=== PATIENT | male | born 1965 | race Caucasian/White ===

== ENCOUNTER 2023-12-06 09:30 | Emergency (ER) | payer OTHER, SELFPAY ==
[2023-12-06 09:31] VITALS: BP 140/65
[2023-12-06 09:40] VITALS: BMI 25.1
--- NOTE | 2023-12-06 09:45 | ED.GENMED ---
History of Present Illness
General
Chief Complaint: Abdominal Symptoms
Source: patient and spouse
Exam Limitations: none
Time Seen by Provider: 12/06/23 09:34
Nursing documentation reviewed up to this point in time: agreed with
Travel History
Have you had any contact with someone who has COVID-19?: No
Do you have any symptoms of coronavirus? Fever > 100 degrees, chills, cough, shortness of breath, sore throat, loss of taste or smell, muscle aches, or headache?: No
History of Present Illness
History of Present Illness:
58-year-old male with a past medical history of hypertension, GERD who presents to the emergency room with his for evaluation of flulike syndrome. Patient reports that 4 days ago he began feeling sick with what he describes as 'a cold.' He
says he has been having some coughing, congestion, sore throat, fever/chills throughout the weekend. He says that this morning he started to have some abdominal discomfort�he reports some aching abdominal pain associate with nausea and dry heaves.
He says that these GI symptoms started shortly after eating 2 eggs for breakfast. He says he decided to come to the emergency room to be evaluated. He has not had any chest pain or shortness of breath. He has not had any diarrhea in fact has been
slightly constipated. He denies any other complaints. He does report that he recently attended an international conference with a large group of people who could potentially be sick contacts. He has prior surgical history of cholecystectomy.
Past History
Past History
ED Past Medical History: HTN
ED Past Surgical History: Cholecystectomy
Social History
Tobacco: Non-smoker
Alcohol: Occasional
Drug: None
Personal:
Living: with family
Review of Systems
Review of Systems
All Other Systems: ROS reviewed and negative except as documented in HPI and ROS
Constitutional: Reports fever, fatigue and chills
EENT: Reports sore throat and runny nose
Respiratory: Reports cough; Denies trouble breathing
Cardiac: Denies chest pain or palpitations
ABD/GI: Reports abdominal pain, nausea and constipated; Denies vomiting or diarrhea
: Denies flank pain
Musculoskeletal: Denies neck pain or back pain
Neurological: Denies dizzy, headache, weakness or numbness
Phy Exam
Physical Exam
Physical Exam:
General: Awake, alert, oriented x3; no acute distress
Head: Normocephalic, atraumatic
Eyes: Conjunctiva normal, EOMI, sclera anicteric
Ears: TMs clear bilaterally
Throat: Airway intact, handling secretions; erythema of the soft palate and tonsils, uvula but no swelling or exudate; uvula is midline
Neck: Trachea midline, supple without meningismus
Lungs: Clear to auscultation bilaterally, no wheezing, rales, rhonchi
Heart: Regular rate and rhythm, no murmurs, gallops, or rubs
Abd: Soft, non distended, minimally tender in the left lower quadrant with no masses, no rebound, no guarding
Neuro: Cranial nerves grossly intact, speech fluid
Skin: no rash
Extremities: No edema in extremities, equal pulses in all extremities
Scores
Heart Failure Risk
Heart Failure Risk Score: Not Applicable
Heart Score for Chest Pain Patients
STEMI patient?: Not applicable
Withdrawal Assessment of Alcohol
Withdrawal Assessment Completed?: Not applicable
Course
Orders/Labs/Results
Orders:
Orders
12/06/23 09:47
Comprehensive Metabolic Panel Urgent
Lipase Urgent
12/06/23 09:48
COVID-19 Antigen Urgent
Source: Nasal Swab
Complete Blood Count/With Diff Urgent
Influenza A+B Rapid Molecular Urgent
RAH Source: Nasal Swab
Specimen Description:
12/06/23 09:51
0.9% Sodium Chloride 500 ml [Nss] 500 ml IV BOLUS
Mag Hydrox/Al Hydrox/Simeth [Maalox] 30 ml Phenobarb/Hyoscy/Atropine/Scop [] 10 ml PO NOW
Ondansetron Injectable [Zofran] 4 mg IV NOW STA
12/06/23 09:53
Mag Hydrox/Al Hydrox/Simeth [Maalox] 30 ml .ROUTE .STK-MED ONE
Phenobarb/Hyoscy/Atropine/Scop [] 10 ml .ROUTE .STK-MED ONE
Abnormal Lab Results
12/06/23
09:48
SARS-CoV-2 Antigen Positive A
(Negative)
Vital Signs
Initial and Last Documented VS:
Initial Vital Signs
Temp Pulse Resp BP Pulse Ox
37.0 C 51 15 140/65 100
12/06/23 09:31 12/06/23 09:31 12/06/23 09:31 12/06/23 09:31 12/06/23 09:31
Last Documented Vital Signs
Temp Pulse Resp BP Pulse Ox
37.0 C 51 15 140/65 100
12/06/23 09:31 12/06/23 09:31 12/06/23 09:31 12/06/23 09:31 12/06/23 09:31
MDM/Problems Addressed
Differential Diagnosis Includes:
Influenza, COVID, other viral syndrome; diverticulitis a consideration although somewhat less likely based on clinical picture; UTI, kidney stone considered much less likely; pancreatitis less likely
MDM/Problems Addressed:
58-year-old male presents for evaluation of flulike illness over the past few days today having some GI symptoms. Vital signs are normal. Exam as above. Plan to place an IV check labs including CBC and CMP, lipase. Send viral swabs. He is
minimally tender on exam and by history symptoms sound likely viral�low suspicion for intra-abdominal emergency or surgical pathology based on full clinical picture and exam and at this point we will hold on abdominal imaging. Monitor closely
reassess after the above.
Patient's COVID swab came back positive�I suspect this is the likely etiology of his symptoms. He also has been taking Mucinex recently for his cold symptoms which could have contributed to his GI issues today. Awaiting results of his lab work but
likely stable for discharge�he is feeling a bit better after ED treatment. We did speak about potentially prescription for Paxlovid but patient 4 to 5 days into his illness and with relatively mild symptoms with no significant comorbidities; we
will hold on this prescription for now.
*Pulse Oximetry
Patient hypoxic: no
*Critical Care Note
Total Time (30-74mins, 75-104mins- exclusive of procedures): Not Applicable
Data Reviewed
Source: patient and spouse
Prescriptions/Medications Considered But Not Given:
Considered Paxlovid as above
Further Testing Considered But Not Given:
Considered CT of the abdomen and pelvis as above
ED Attending Note
-
Portions of this chart may have been created with voice recognition software.� Occasional wrong word or��sound alike� substitutions may have occurred due to the inherent limitations of voice recognition software.
Discharge Plan
Departure
Patient with high blood pressure during this ER visit?: No
Discharge Problem:
COVID-19
Instructions: COVID-19 ED
Prescriptions:
No Action
ibuprofen [Advil] 200 MG tablet
400 mg PO PRN PRN (Reason: pain)
omeprazole 20 MG capsule,delayed release(DR/EC)
20 mg PO DAILY
lisinopril 5 MG tablet
5 mg PO DAILY
Referrals:
Keshav Reece I., DO [Family Provider] - Follow up in 5-7 days
Activity Restrictions/Additional Instructions:
Thank you for visiting the Emergency Department at [facility].
1. Please schedule a follow up appointment as directed. Call first thing tomorrow morning to make an appointment.
2. If indicated, please take your medications as instructed and indicated on discharge paperwork.
3. If any of your symptoms do not improve, or persist, or become more severe within 6-12 hours, please return to the emergency department for further care.
4. Please return to the emergency department if you develop a headache, neck pain/stiffness, fever greater than 100.4F, chest pain, shortness of breath, persistent nausea, vomiting, slurred speech, difficulty walking, numbness/tingling, weakness,
signs of infection or any other symptoms that are worrisome to you.
Please call [phone] if you have any questions.
Interventions
Interventions:
*Risk Screen - Suicide Last Done: 12/06/23 09:40
*General Assessment Last Done: 12/06/23 09:40
*Neglect/Abuse Screening Last Done: 12/06/23 09:40
*ED COVID-19 Vaccine History Last Done: 12/06/23 09:40
EU-Uepzfy-Eepbqzlqib Assessment Last Done: 12/06/23 09:40
Discharge Date and Time
Print Language: AMHARIC
[2023-12-06] MEDS: MAALOX 40 PO (09:56)
[2023-12-06] MEDS: NSS 500 IV (09:56)
[2023-12-06] MEDS: ZOFRAN 4 MG IV (09:56)
[2023-12-06 10:03] LABS: % Basophils 0.6 % (0-2); % Eosinophils 0.6 % (0-6); % Immature Granulocytes 0.3 % (0-0.5); % Lymphocytes 13.3 % (20.5-51.1); % Monocytes 12.3 % (1.7-9.3); % Neutrophils 72.9 % (42.2-75.2); Absolute Lymphocytes 0.8 10^3/uL (1.2-3.4); Absolute Monocytes 0.8 10^3/uL (0.1-0.6); Absolute Neutrophils 4.6 10^3/uL (1.4-6.5); Hemoglobin 15.9 g/dL (13.0-18.0); Mean Corp Hgb Conc. 36.1 g/dL (33.0-37.0); Mean Corpuscular Hgb 32.4 pg (27.0-31.0); Mean Corpuscular Volume 89.6 fL (80.0-94.0); Mean Platelet Volume 9.6 fL (7.4-10.4); Nucleated Red Blood Cells % 0 % (-); Platelet Count 153 10^3/uL (130-400); Red Blood Cell Count 4.91 10^6/uL (4.70-6.10); Red Cell Dist. Width 12.3 % (11.5-14.5); White Blood Cell Count 6.3 10^3/uL (4.8-10.8)
[2023-12-06 10:07] LABS: COVID-19 Antigen Positive (Negative)
[2023-12-06 10:40] LABS: ALT (SGPT) 31 U/L (0-50); AST (SGOT) 29 U/L (17-59); Albumin 4.7 g/dl (3.5-5.0); Alkaline Phosphatase 89 U/L (38-126); Blood Urea Nitrogen 17 mg/dl (9-20); Calcium 9.5 mg/dl (8.4-10.2); Carbon Dioxide 29 mmol/L (22-30); Chloride 99 mmol/L (98-107); Estimated Creatinine Clearance 95 ml/min; Glucose 154 mg/dl (70-99); Lipase 69 U/L (23-300); Potassium 4.4 mmol/L (3.5-5.1); Sodium 135 mmol/L (135-145); Total Bilirubin 0.9 mg/dl (0.2-1.3); Total Protein 7.1 g/dl (6.3-8.2); eGFR > 60.00
[2023-12-06] MEDS: TORADOL 15 MG IV (10:54)
[2023-12-06] MEDS: PROTONIX IV 40 MG IV (10:55)
[2023-12-06 11:20] VITALS: BP 131/59
== END 2023-12-06 11:25 | disposition home or self-care (01) ==
LOC: EMR 09:30
PROVIDERS: EMERGENCY PHYSICIAN Emergency Medicine; FAMILY PHYSICIAN Internal Medicine
DX: U07.1 COVID-19 (principal); I10 Essential (primary) hypertension; K21.9 Gastro-esophageal reflux disease without esophagitis; Z90.49 Acquired absence of other specified parts of digestive tract
CPT/HCPCS: 99284; 96374; 96375; 96361; 80053; 83690; 85025; 87502; 87811

== ENCOUNTER → 2024-05-24 14:24 | Outpatient (REF) | payer OTHER, SELFPAY | LOC: RCS 14:24 | PROVIDERS: ATTENDING PHYSICIAN Internal Medicine | DX: Z00.00 Encounter for general adult medical examination without abnormal findings (principal); R01.1 Cardiac murmur, unspecified | CPT/HCPCS: 93306 ==